=== PATIENT | female | born 1950 | race African-American/Black ===

== ENCOUNTER → 2019-09-02 | Outpatient (CLI) | payer BC, MEDICAID, MEDICARE, OTHER ==
[2014-09-22 01:32] VITALS: BP 169/72
--- NOTE | 2019-09-02 11:17 | RAD ---
EXAM: RENAL DOPPLER ULTRASOUND. HISTORY: Hypertension. Decreased glomerular filtration rate. COMPARISON: None. FINDINGS: Grayscale and Doppler analysis of the renal vasculature was performed bilaterally. Grayscale analysis of the kidneys was also performed. The peak systolic velocities within the proximal, mid and distal right renal artery are 105 cm/s, 88 cm/s, and 88 cm/s, respectively. Resistive indices measure 0.81-0.86. The right renal vein is patent. The corresponding measurements on the left are 67 cm/s, 94 cm/s, and 72 cm/s, respectively. Resistive indices measure 0.78-0.80. The left renal vein is patent. The systolic velocity within the abdominal aorta at the level of the renal arteries is 65 cm/s. The inferior vena cava is grossly patent and normal in caliber. The right kidney measures 10.4 cm. Cortical thickness and echogenicity are preserved. There is no hydronephrosis. A benign cyst at the right renal upper pole measures 1.4 x 1.2 cm. The left kidney measures 10.8 cm. Cortical thickness and echogenicity are preserved. There is no hydronephrosis. Hyperechogenicity of the hepatic parenchyma is consistent with diffuse hepatic steatosis. IMPRESSION: 1. No evidence of hemodynamically significant stenosis. 2. Increased resistive indices bilaterally suggest intrinsic renal disease. Unremarkable grayscale examination of the kidneys. No hydronephrosis. 3. Diffuse hepatic steatosis. Electronically signed by: Jordin Reddy MD (09/02/2019 11:14 AM) [id number]
== END | disposition home or self-care (01) ==
LOC: US 09:30
PROVIDERS: ATTEND Family Medicine
DX: N28.1 Cyst of kidney, acquired (principal); R94.4 Abnormal results of kidney function studies; K76.0 Fatty (change of) liver, not elsewhere classified
CPT/HCPCS: 93975